=== PATIENT | male | born 1970 | race Two or more races ===

== ENCOUNTER 2017-12-16 08:44 | Emergency (ER) | payer BC ==
[~2017-12-16] VITALS: Ht 170.2 cm; Wt 85.5 kg
[2017-12-16] MEDS ORDERED: ONDANSETRON HCL 4 MG/2 ML VIAL IVP ONE (10:30)
[2017-12-16] MEDS ORDERED: FentaNYL CITRATE-PF 100 MCG/2 ML VIAL IVP ONE (10:30)
[2017-12-16] MEDS ORDERED: SODIUM CHLORIDE 0.9% 1,000 ML IV ONE (10:30)
[2017-12-16] MEDS ORDERED: IOVERSOL 350 MG/ML 150 ML VIAL ONE (10:35)
[2017-12-16] MEDS ORDERED: HYDROCODONE/ACETAMINOPHEN 5-325 MG TABLET PO ONE (11:30)
[2017-12-16 12:50] VITALS: BP 139/90
[2017-12-19] MEDS ORDERED: MIRT15 PO (13:56)
== END 2017-12-16 13:39 | disposition home or self-care (01) ==
LOC: EMS 08:45
DX: K85.90 Acute pancreatitis without necrosis or infection, unspecified (principal); R10.13 Epigastric pain; R11.2 Nausea with vomiting, unspecified; K70.30 Alcoholic cirrhosis of liver without ascites; K29.20 Alcoholic gastritis without bleeding; F10.20 Alcohol dependence, uncomplicated; F32.9 Major depressive disorder, single episode, unspecified; F17.210 Nicotine dependence, cigarettes, uncomplicated; Z71.6 Tobacco abuse counseling
CPT/HCPCS: 36415; 74177; 83690; 96361; 96374; 96375; 99285; 99406; J2405; J3010; J7030; Q9967

== ENCOUNTER 2018-02-12 15:38 | Inpatient (IN) | payer BC ==
[~2018-02-12] VITALS: Ht 175.3 cm; Wt 81.6 kg
[~2018-02-12 15:38] MED LIST: MIRT15 PO
[2018-02-12] MEDS ORDERED: PNEUMOCOCCAL VACCINE POLYVALENT 0.5 ML VIAL [PPSV23] IM ONE (17:00)
[2018-02-12 17:37] VITALS: BP 144/88
[2018-02-12] MEDS ORDERED: LORazepam 2 MG TABLET PO PRN (17:45)
[2018-02-12 17:46] VITALS: BP 119/70
[2018-02-12 18:01] VITALS: BP 138/87
[2018-02-12] MEDS ORDERED: GuaiFENesin/D-METHORPHAN [SUGAR-FREE] 200-20MG/10 ML SYRUP UDCUP PO PRN ×2 (18:30→20:00)
[2018-02-12] MEDS ORDERED: CYANOCOBALAMIN 1,000 MCG/ML VIAL IM ONE (18:30)
[2018-02-12] MEDS ORDERED: LOPERAMIDE HCL 2 MG CAPSULE PO PRN ×2 (18:30→20:00)
[2018-02-12] MEDS: HALOPERIDOL 5 MG TABLET PO PRN (18:35)
[2018-02-12 18:46] VITALS: BP 103/60
[2018-02-12 19:46] VITALS: BP 109/60
[2018-02-12] MEDS ORDERED: PETROLATUM,WHITE 71 GM JELLY TP PRN (20:00)
[2018-02-12] MEDS ORDERED: MAGNESIUM HYDROXIDE SUSPENSION 30 ML UDCUP PO PRN (20:00)
[2018-02-12] MEDS ORDERED: IBUPROFEN 400 MG TABLET PO PRN (20:00)
[2018-02-12] MEDS ORDERED: ALBUTEROL SULFATE HFA 90 MCG/PUFF 8 GM INHALER IH PRN (20:00)
[2018-02-12] MEDS ORDERED: ONDANSETRON HCL 4 MG TABLET PO PRN (20:00)
[2018-02-12] MEDS ORDERED: DOCUSATE SODIUM 100 MG CAPSULE PO PRN (20:00)
[2018-02-12] MEDS ORDERED: MAG HYDROX/AL HYDROX/SIMETH ES 30 ML SUSPENSION UDCUP PO PRN (20:00)
[2018-02-12] MEDS ORDERED: ACETAMINOPHEN 325 MG TABLET PO PRN (20:00)
[2018-02-12] MEDS ORDERED: CloNIDine HCL 0.1 MG TABLET PO PRN (20:00)
[2018-02-12] MEDS ORDERED: NICOTINE 14 MG/24 HOUR PATCH TD PRN (20:00)
[2018-02-12] MEDS: ChlordiazePOXIDE HCL 25 MG CAPSULE PO PRN (21:32)
[2018-02-12 21:46] VITALS: BP 125/70
[2018-02-13] VITALS (10 sets, daily range): BP systolic 115–154; BP diastolic 72–96
[2018-02-13] MEDS: ZOLPIDEM TARTRATE 10 MG TABLET PO PRN ×2 (00:39→20:11)
[2018-02-13] MEDS: ChlordiazePOXIDE HCL 25 MG CAPSULE PO PRN ×4 (00:39→17:49)
[2018-02-13 08:17] LABS: BASOPHILS % (AUTO) 1.9 % (0.0-2.0); EOSINOPHILS % (AUTO) 5.2 % (1.0-6.0); HEMATOCRIT 38.7 % (41-53); HEMOGLOBIN 14.1 g/dL (13.5-17.5); LYMPHOCYTES # (AUTO) 1.1 K/uL (1.0-4.8); LYMPHOCYTES % (AUTO) 30.9 % (22.0-44.0); MEAN CORPUSCULAR HEMOGLOBIN 35.2 pg (26.0-34.0); MEAN CORPUSCULAR HGB CONC 36.4 G/dL (31.0-37.0); MEAN CORPUSCULAR VOLUME 97 fL (80-100); MONOCYTES # (AUTO) 0.3 K/uL (0.1-1.0); MONOCYTES % (AUTO) 7.4 % (2.0-9.0); NEUTROPHILS # (AUTO) 1.9 K/uL (1.8-7.7); NEUTROPHILS % (AUTO) 54.6 % (40.0-70.0); PLATELET COUNT (AUTO) 159 K/uL (150-450); RED BLOOD CELL COUNT(AUTO) 4.01 MIL/uL (4.50-5.90); RED CELL DISTRIBUTION WIDTH 13.7 % (11.5-14.5)
[2018-02-13 08:30] LABS: HEMOGLOBIN A1C 5.6 % (4.5-6.2)
[2018-02-13 08:41] LABS: ALANINE AMINOTRANSFERASE 298 U/L (12-78); ALBUMIN 3.4 g/dL (3.4-5.0); ALKALINE PHOSPHATASE 146 U/L (46-116); ANION GAP 8 mmol/L (8-16); ASPARTATE AMINOTRANSFERASE 697 U/L (15-37); BILIRUBIN,TOTAL 1.8 mg/dL (0.1-1.0); CALCIUM, TOTAL 8.7 mg/dL (8.8-10.5); CARBON DIOXIDE 30 mmol/L (22-29); CHLORIDE 100 mmol/L (98-107); CHOL/HDL RATIO 2.9 (4.2-7.3); CHOLESTEROL 236 mg/dL (131-200); CREATININE 0.74 mg/dL (0.60-1.30); GLOMERULAR FILTR. RATE CALC > 60 mL/min (>60); GLUCOSE,RANDOM 107 mg/dL (70-110); HDL CHOLESTEROL 82 mg/dL (40-60); LDL CHOL (CALC.) 132 mg/dL (0-130); SODIUM SERUM 138 mmol/L (136-145); THYROID STIMULATING HORMONE 3.16 uIU/mL (0.36-3.74); TOTAL PROTEIN, SERUM 7.1 g/dL (6.4-8.2); TRIGLYCERIDES 108 mg/dL (15-150); UREA NITROGEN, BLOOD 5 mg/dL (7-18)
[2018-02-13 08:42] LABS: ALBUMIN 3.4 g/dL (3.4-5.0); BILIRUBIN,DIRECT 0.7 mg/dL (0.00-0.20); BILIRUBIN,TOTAL 1.8 mg/dL (0.1-1.0); FREE T4 (FREE THYROXINE) 0.68 ng/dL (0.76-1.46); TOTAL PROTEIN, SERUM 7.1 g/dL (6.4-8.2)
[2018-02-13] MEDS: FOLIC ACID 1 MG TABLET PO SCH (08:44)
[2018-02-13] MEDS: THIAMINE HCL 100 MG TABLET PO SCH ×2 (08:44→16:56)
[2018-02-13] MEDS: ChlordiazePOXIDE HCL 25 MG CAPSULE PO SCH ×4 (08:44→20:11)
[2018-02-13] MEDS: MULTIVITAMINS WITH MINERALS, THERAPEUTIC TABLET PO SCH (08:44)
[2018-02-13] MEDS ORDERED: POTASSIUM CHLORIDE 20 MEQ ER TABLET PO ONE (10:00)
[2018-02-13] MEDS: HALOPERIDOL 5 MG TABLET PO PRN (17:49)
[2018-02-14] MEDS: ChlordiazePOXIDE HCL 25 MG CAPSULE PO PRN (00:08)
[2018-02-14 05:48] VITALS: BP 128/78
[2018-02-14 08:00] VITALS: BP 129/85
[2018-02-14 08:08] VITALS: BP 129/85
[2018-02-14 08:34] LABS: BASOPHILS % (AUTO) 1.3 % (0.0-2.0); HEMATOCRIT 42.2 % (41-53); LYMPHOCYTES % (AUTO) 21.3 % (22.0-44.0); MEAN CORPUSCULAR HEMOGLOBIN 35.1 pg (26.0-34.0); MEAN CORPUSCULAR HGB CONC 35.6 G/dL (31.0-37.0); MEAN CORPUSCULAR VOLUME 98 fL (80-100); MONOCYTES # (AUTO) 0.4 K/uL (0.1-1.0); MONOCYTES % (AUTO) 7.2 % (2.0-9.0); NEUTROPHILS # (AUTO) 3.1 K/uL (1.8-7.7); NEUTROPHILS % (AUTO) 64.2 % (40.0-70.0); PLATELET COUNT (AUTO) 144 K/uL (150-450); RED BLOOD CELL COUNT(AUTO) 4.29 MIL/uL (4.50-5.90); RED CELL DISTRIBUTION WIDTH 13.8 % (11.5-14.5)
[2018-02-14 08:55] LABS: ANION GAP 11 mmol/L (8-16); CALCIUM, TOTAL 9.1 mg/dL (8.8-10.5); CARBON DIOXIDE 27 mmol/L (22-29); CHLORIDE 98 mmol/L (98-107); CREATININE 0.72 mg/dL (0.60-1.30); GLOMERULAR FILTR. RATE CALC > 60 mL/min (>60); GLUCOSE,RANDOM 87 mg/dL (70-110); POTASSIUM 3.2 mmol/L (3.5-5.1); SODIUM SERUM 136 mmol/L (136-145); UREA NITROGEN, BLOOD 8 mg/dL (7-18)
[2018-02-14] MEDS: THIAMINE HCL 100 MG TABLET PO SCH ×2 (11:00→16:55)
[2018-02-14] MEDS: FOLIC ACID 1 MG TABLET PO SCH (11:00)
[2018-02-14] MEDS: ChlordiazePOXIDE HCL 25 MG CAPSULE PO SCH ×4 (11:01→20:48)
[2018-02-14] MEDS: MULTIVITAMINS WITH MINERALS, THERAPEUTIC TABLET PO SCH (11:02)
[2018-02-14] MEDS ORDERED: POTASSIUM CHLORIDE 20 MEQ ER TABLET PO ONE (12:15)
[2018-02-14 16:00] VITALS: BP 126/84
[2018-02-14] MEDS: HALOPERIDOL 5 MG TABLET PO PRN (16:56)
[2018-02-14] MEDS: ZOLPIDEM TARTRATE 10 MG TABLET PO PRN (20:48)
[2018-02-15 00:37] VITALS: BP 123/93
[2018-02-15] MEDS: ChlordiazePOXIDE HCL 25 MG CAPSULE PO PRN (01:36)
[2018-02-15] MEDS ORDERED: ChlordiazePOXIDE HCL 10 MG CAPSULE PO PRN (07:00)
[2018-02-15 08:07] VITALS: BP 144/83
[2018-02-15] MEDS: THIAMINE HCL 100 MG TABLET PO SCH ×2 (08:55→16:32)
[2018-02-15] MEDS: FOLIC ACID 1 MG TABLET PO SCH (08:55)
[2018-02-15] MEDS: ChlordiazePOXIDE HCL 10 MG CAPSULE PO SCH ×4 (09:01→20:12)
[2018-02-15] MEDS: MULTIVITAMINS WITH MINERALS, THERAPEUTIC TABLET PO SCH (09:05)
[2018-02-15 10:04] VITALS: BP 144/83
[2018-02-15] MEDS: HALOPERIDOL 5 MG TABLET PO PRN ×2 (10:16→22:56)
[2018-02-15 16:00] VITALS: BP 127/80
[2018-02-15] MEDS: ZOLPIDEM TARTRATE 10 MG TABLET PO PRN (20:12)
[2018-02-16] MEDS: HydrOXYzine PAMOATE 50 MG CAPSULE PO PRN (00:48)
[2018-02-16 01:07] VITALS: BP 132/78
[2018-02-16 01:12] VITALS: BP 132/78
[2018-02-16 08:11] VITALS: BP 126/76
[2018-02-16] MEDS: MULTIVITAMINS WITH MINERALS, THERAPEUTIC TABLET PO SCH (08:11)
[2018-02-16] MEDS: THIAMINE HCL 100 MG TABLET PO SCH ×2 (08:11→16:19)
[2018-02-16] MEDS: FOLIC ACID 1 MG TABLET PO SCH (08:11)
[2018-02-16 14:33] VITALS: BP 130/75
[2018-02-16 16:17] VITALS: BP 110/83
[2018-02-16 17:39] VITALS: BP 110/83
[2018-02-16] MEDS: ChlordiazePOXIDE HCL 10 MG CAPSULE PO PRN (20:36)
[2018-02-16] MEDS: ZOLPIDEM TARTRATE 10 MG TABLET PO PRN (22:14)
[2018-02-17 00:30] VITALS: BP 132/78
[2018-02-17] MEDS: HydrOXYzine PAMOATE 50 MG CAPSULE PO PRN (01:48)
[2018-02-17] MEDS: ChlordiazePOXIDE HCL 10 MG CAPSULE PO PRN (05:38)
[2018-02-17] MEDS ORDERED: LEVOTHYROXINE SODIUM 25 MCG TABLET PO SCH (06:30)
[2018-02-17] MEDS: FOLIC ACID 1 MG TABLET PO SCH (08:05)
[2018-02-17] MEDS: MULTIVITAMINS WITH MINERALS, THERAPEUTIC TABLET PO SCH (08:05)
[2018-02-17] MEDS: THIAMINE HCL 100 MG TABLET PO SCH (08:05)
[2018-02-17 09:16] VITALS: BP 122/68
[2018-02-17] MEDS ORDERED: LEVO25TA9 PO (12:33)
[2018-02-17 12:58] VITALS: BP 128/76
== END 2018-02-17 14:19 | disposition home or self-care (01) | DRG 885 ==
LOC: B3A 17:30
PROVIDERS: ADMIT Psychiatry & Neurology Psychiatry; ATTEND Psychiatry & Neurology Psychiatry
DX: F33.2 Major depressive disorder, recurrent severe without psychotic features (principal); R45.851 Suicidal ideations; K86.1 Other chronic pancreatitis; D69.6 Thrombocytopenia, unspecified; E03.9 Hypothyroidism, unspecified; E78.5 Hyperlipidemia, unspecified; E87.6 Hypokalemia; F41.9 Anxiety disorder, unspecified; F10.20 Alcohol dependence, uncomplicated; G40.909 Epilepsy, unspecified, not intractable, without status epilepticus; K74.60 Unspecified cirrhosis of liver; Z59.0 Homelessness; Z91.14 Patient's other noncompliance with medication regimen; Z28.21 Immunization not carried out because of patient refusal; Z71.41 Alcohol abuse counseling and surveillance of alcoholic
CPT/HCPCS: 80074; 83036; 84132; 84439; 84443; 90686; 90732; J3420; Q0162